=== PATIENT | female | born 1945 | race Caucasian/White ===

== ENCOUNTER → 2018-01-16 | Outpatient (CLI) | payer MEDICARE, OTHER ==
[~2018-01-16] MED LIST: ALBU.083IS IH; ALBU90OI INH; ALEN70 PO; AMLO5; AMLO5 PO; Alavert D-12 A1 EACH PO; Amoxicillin500 MG PO; CELE200; CELE200 PO; CEPH500 PO; CIPR500 PO; DOCSEN PO; DONE5 PO; DULO60; DULOXETINE; FERR325 PO; FLUO20 PO; HYDACE5 PO; IRON150C; NIFE60ER PO; OMEP20ER PO; OMEP40CA12 PO; OMEPRAZOLE; ONDA4ODT MM; OXYB5 PO; OXYC15ER; OXYC15ER PO; OXYCODONE; Omeprazole20 M1 PO; PRIMATINE PO; PROACE100; PROCARDIA; PROLIA60 MG/1 ML SC; PROLIA60 MG/1 ML SQ; PROZAC; Percocet 5-3251 EACH PO; RANI150; RXPROM25 PO; SIMV10 PO; STOOL SOFTENER1 EAC2 PO; Senna S Tablet1 EACH PO; Solaraze100 GM; THEO300ERA PO; THEOPHYLLINE; TIOT18 INH; TRAZ100 PO; TRAZ150T57 PO; TRAZADONE; TYLENOL PM; Ultram50 MG PO; VITAMIN D35000 UNIT PO; Zofran Odt4 MG SL; [UNRECOGNIZED DRUG - OTHER] PO; [UNRECOGNIZED DRUG - OTHER] PO
== END | disposition home or self-care (01) ==
LOC: PLD 09:53 → LAB SHORT 09:53
DX: D48.5 Neoplasm of uncertain behavior of skin (principal)
CPT/HCPCS: 88305

== ENCOUNTER 2018-02-14 09:44 | Day surgery (SDC) | payer MEDICARE, OTHER ==
[~2018-02-14] VITALS: Ht 149.9 cm; Wt 58.5 kg
[~2018-02-14 09:44] MED LIST changes: -DONE5 PO
[2018-02-14] MEDS ORDERED: DONE5 PO (09:55)
== END 2018-02-14 11:00 | disposition home or self-care (01) ==
LOC: ORSCSDS 09:44
PROVIDERS: Anesthesiology
PROC: 3E0R33Z Introduction of Anti-inflammatory into Spinal Canal, Percutaneous Approach (ICD-10-PCS; principal; 2018-02-14 10:30)
DX: M54.12 Radiculopathy, cervical region (principal); M54.2 Cervicalgia; F32.9 Major depressive disorder, single episode, unspecified; E78.00 Pure hypercholesterolemia, unspecified; I10 Essential (primary) hypertension; J44.9 Chronic obstructive pulmonary disease, unspecified; Z87.891 Personal history of nicotine dependence; Z79.899 Other long term (current) drug therapy
CPT/HCPCS: J1040; J2250; J3010

== ENCOUNTER 2018-05-10 10:50 | Day surgery (SDC) | payer MEDICARE, OTHER ==
[~2018-05-10] VITALS: Ht 149.9 cm; Wt 58.1 kg
[~2018-05-10 10:50] MED LIST changes: +DONE5 PO
== END 2018-05-10 12:20 | disposition home or self-care (01) ==
LOC: ORSCSDS 10:50
DX: M54.12 Radiculopathy, cervical region (principal); Z53.9 Procedure and treatment not carried out, unspecified reason
CPT/HCPCS: J7120

== ENCOUNTER 2018-05-31 10:45 | Day surgery (SDC) | payer MEDICARE, OTHER ==
[~2018-05-31] VITALS: Ht 149.9 cm; Wt 58.0 kg
== END 2018-05-31 12:51 | disposition home or self-care (01) ==
LOC: ORSCSDS 10:45
PROVIDERS: Anesthesiology
PROC: 3E0R33Z Introduction of Anti-inflammatory into Spinal Canal, Percutaneous Approach (ICD-10-PCS; principal; 2018-05-31 12:00)
DX: M50.122 Cervical disc disorder at C5-C6 level with radiculopathy (principal); F32.9 Major depressive disorder, single episode, unspecified; I10 Essential (primary) hypertension; J44.9 Chronic obstructive pulmonary disease, unspecified; E78.00 Pure hypercholesterolemia, unspecified; Z87.891 Personal history of nicotine dependence; Z79.899 Other long term (current) drug therapy
CPT/HCPCS: J1040; J2250; J3010; J7040

== ENCOUNTER → 2019-01-29 | Outpatient (CLI) | payer MEDICARE, OTHER | END | disposition home or self-care (01) | LOC: PLD 10:52 → LAB SHORT 10:52 | DX: D48.5 Neoplasm of uncertain behavior of skin (principal) | CPT/HCPCS: 88305 ==

== ENCOUNTER → 2019-08-27 | Outpatient (CLI) | payer MEDICARE, OTHER ==
[~2019-08-27] MED LIST changes: +DULO60 PO; +GABA100 PO; +Hard Nails2500 MCG PO; +LOSA25 PO; +NARCAN4 MG MM
[2019-08-29 14:49] LABS: Adenovirus F 40/41 Not Detected (NOT DETECT); Astrovirus Not Detected (NOT DETECT); Campylobacter Sp Not Detected (NOT DETECT); Cryptosporidium Not Detected (NOT DETECT); Cyclospora Cayetanensis Not Detected (NOT DETECT); E. Coli O157 Not Detected (NOT DETECT); Entamoeba Histolytica Not Detected (NOT DETECT); Enteroaggregative E. coli-EAEC Not Detected (NOT DETECT); Enteropathogenic E. coli-EPEC Not Detected (NOT DETECT); Enterotoxigenic E. coli-ETEC Not Detected (NOT DETECT); Giardia Lamblia Not Detected (NOT DETECT); Norovirus GI/GII Not Detected (NOT DETECT); Plesiomonas Shigelloides Not Detected (NOT DETECT); Rotavirus A Not Detected (NOT DETECT); Salmonella Sp Not Detected (NOT DETECT); Sapovirus Not Detected (NOT DETECT); Shiga Toxin-prod E. coli-STEC Not Detected (NOT DETECT); Shigella/Enteroin E. coli-EIEC Not Detected (NOT DETECT); Vibrio Cholerae Not Detected (NOT DETECT); Vibrio Sp Not Detected (NOT DETECT); Yersinia Enterocolitica Not Detected (NOT DETECT)
== END | disposition home or self-care (01) ==
LOC: LAB EV 08:00
PROVIDERS: Physician Assistant Medical
DX: R15.9 Full incontinence of feces (principal)
CPT/HCPCS: 0097U

== ENCOUNTER 2019-09-04 12:34 | Day surgery (SDC) | payer MEDICARE, OTHER ==
[~2019-09-04] VITALS: Ht 149.9 cm; Wt 51.9 kg
== END 2019-09-04 15:14 | disposition home or self-care (01) ==
LOC: ORSCSDS 12:34
PROVIDERS: Internal Medicine Gastroenterology
PROC: 0DB98ZX Excision of Duodenum, Via Natural or Artificial Opening Endoscopic, Diagnostic (ICD-10-PCS; principal; 2019-09-04 13:45)
PROC: 0DB78ZX Excision of Stomach, Pylorus, Via Natural or Artificial Opening Endoscopic, Diagnostic (ICD-10-PCS; principal; 2019-09-04 13:45)
PROC: 0DBE8ZX Excision of Large Intestine, Via Natural or Artificial Opening Endoscopic, Diagnostic (ICD-10-PCS; principal; 2019-09-04 13:45)
DX: R19.7 Diarrhea, unspecified (principal); R63.4 Abnormal weight loss; K92.1 Melena; R15.9 Full incontinence of feces; K52.831 Collagenous colitis; K44.9 Diaphragmatic hernia without obstruction or gangrene; K57.30 Diverticulosis of large intestine without perforation or abscess without bleeding; K64.8 Other hemorrhoids; K21.9 Gastro-esophageal reflux disease without esophagitis; I10 Essential (primary) hypertension; J44.9 Chronic obstructive pulmonary disease, unspecified; Z87.891 Personal history of nicotine dependence; Z79.899 Other long term (current) drug therapy
CPT/HCPCS: 88305; 88342; J2704; J7120

== ENCOUNTER 2021-10-01 00:54 | Inpatient (IN) | payer MEDICARE ==
[~2021-10-01] VITALS: Ht 149.9 cm; Wt 51.3 kg
[2021-10-01 02:11] LABS: Source, Urine Catheter
[2021-10-01 02:15] LABS: Bilirubin, Urine Neg (Neg); Blood, Urine 4+ (Neg); Glucose Qualitative, Urine Neg (Neg); Ketones, Urine Neg (Neg); Leukocyte Esterase, Urine 1+ (Neg); Nitrite, Urine Pos (Neg); Protein, Urine 2+ (Neg); Urobilinogen, Urine NORM (Normal); pH, Urine 6.5 (5.0-8.0)
[2021-10-01 02:19] LABS: Appearance, Urine Hazy (Clear); Color, Urine Yellow (P-Yellow)
[2021-10-01 02:25] LABS: Bacteria Many /hpf; Squamous Epithelial Cells Not Seen /hpf (Few)
[2021-10-01 02:53] LABS: BASOPHILS ABSOLUTE AUTO 0.05 K/mm3 (0.00-0.23); BASOPHILS PERCENT AUTO 0 % (0-2); EOSINOPHILS ABSOLUTE AUTO 0.01 K/mm3 (0.00-0.68); EOSINOPHILS PERCENT AUTO 0 % (0-6); Hematocrit 28.9 % (33.0-51.0); Hemoglobin 9.4 g/dL (11.5-16.0); IMMATURE GRAN ABSOLUTE AUTO 0.05 K/mm3 (0.00-0.10); IMMATURE GRAN PERCENT AUTO 0 % (0-1); LYMPHOCYTES ABSOLUTE AUTO 1.25 K/mm3 (0.84-5.20); LYMPHOCYTES PERCENT AUTO 10 % (21-46); MONOCYTES ABSOLUTE AUTO 1.79 K/mm3 (0.16-1.47); MONOCYTES PERCENT AUTO 14 % (4-13); Mean Corpuscular HGB 32.6 pg (26.0-34.0); Mean Corpuscular HGB Conc 32.5 g/dL (31.5-36.5); Mean Corpuscular Volume 100 fL (80-100); Mean Platelet Volume 8.2 fL (9.1-12.4); NEUTROPHILS ABSOLUTE AUTO 9.78 K/mm3 (1.96-9.15); NEUTROPHILS PERCENT AUTO 76 % (41-73); Platelet Count 321 K/mm3 (150-400); RDW Coefficient Variation 13.2 % (11.7-14.2); RDW Standard Deviation 48.7 fL (35.1-46.3); Red Blood Cell Count 2.88 M/mm3 (3.80-5.20); White Blood Cell Count 12.93 K/mm3 (4.00-11.30)
[2021-10-01 03:13] LABS: Alanine Aminotransfer (ALT/SGP 10 U/L (12-78); Albumin, Blood 2.4 g/dL (3.4-5.0); Albumin/Globulin Ratio 0.7 (0.8-1.8); Alk Phos 65 U/L (50-136); Anion Gap 7 mmol/L (6-16); Aspartate Aminotrans (AST/SGOT 13 U/L (12-37); Bilirubin, Total 0.5 mg/dL (0.1-1.0); Blood Urea Nitrogen 9 mg/dL (8-24); Bun/Creatinine Ratio 11.8 (12.0-20.0); CO2, Blood 27 mmol/L (21-32); Calcium, Blood 8.5 mg/dL (8.5-10.1); Chloride, Blood 106 mmol/L (98-108); Creatinine, Blood 0.76 mg/dL (0.40-1.00); Globulin, Blood 3.6 g/dL (2.2-4.0); Glomerular Filtration Rate >60 (60-); Glucose, Blood 107 mg/dL (70-99); Magnesium, Blood 1.7 mg/dL (1.6-2.4); Potassium, Blood 2.7 mmol/L (3.5-5.5); Sodium, Blood 140 mmol/L (136-145); Troponin I <0.015 ng/mL (0.000-0.040)
[2021-10-01] MEDS ORDERED: OXYB5 PO (04:02)
[2021-10-01] MEDS ORDERED: SULFASALAZINE PO (04:02)
[2021-10-01] MEDS ORDERED: MEMA5TAB PO (04:03)
[2021-10-01] MEDS ORDERED: TRAZ50 (04:03)
[2021-10-01] MEDS ORDERED: AMLODIPINE BESYL5 MG PO (04:03)
[2021-10-01] MEDS ORDERED: PANTOPRAZOLE SO40 M2 PO (04:04)
[2021-10-01] MEDS ORDERED: DONEPEZIL HCL10 M1 PO (04:04)
[2021-10-01] MEDS ORDERED: FOLI1 PO (04:04)
[2021-10-01 05:13] LABS: Influenza A, PCR NEGATIVE (NEGATIVE); Influenza B, PCR NEGATIVE (NEGATIVE); Resp Syncytial Virus, PCR NEGATIVE (NEGATIVE); SARS-Cov-2 (COVID-19) PCR, MMC NEGATIVE (NEGATIVE)
[2021-10-01 08:14] LABS: BASOPHILS ABSOLUTE AUTO 0.05 K/mm3 (0.00-0.23); BASOPHILS PERCENT AUTO 1 % (0-2); EOSINOPHILS ABSOLUTE AUTO 0.01 K/mm3 (0.00-0.68); EOSINOPHILS PERCENT AUTO 0 % (0-6); Hematocrit 29.3 % (33.0-51.0); Hemoglobin 9.3 g/dL (11.5-16.0); IMMATURE GRAN ABSOLUTE AUTO 0.06 K/mm3 (0.00-0.10); IMMATURE GRAN PERCENT AUTO 1 % (0-1); LYMPHOCYTES ABSOLUTE AUTO 1.21 K/mm3 (0.84-5.20); LYMPHOCYTES PERCENT AUTO 11 % (21-46); MONOCYTES ABSOLUTE AUTO 1.52 K/mm3 (0.16-1.47); MONOCYTES PERCENT AUTO 14 % (4-13); Mean Corpuscular HGB Conc 31.7 g/dL (31.5-36.5); Mean Corpuscular Volume 104 fL (80-100); Mean Platelet Volume 8.6 fL (9.1-12.4); NEUTROPHILS ABSOLUTE AUTO 8.19 K/mm3 (1.96-9.15); NEUTROPHILS PERCENT AUTO 74 % (41-73); Platelet Count 252 K/mm3 (150-400); RDW Coefficient Variation 13.3 % (11.7-14.2); RDW Standard Deviation 50.8 fL (35.1-46.3); Red Blood Cell Count 2.82 M/mm3 (3.80-5.20); White Blood Cell Count 11.04 K/mm3 (4.00-11.30)
[2021-10-01 08:30] LABS: Anion Gap 4 mmol/L (6-16); Blood Urea Nitrogen 9 mg/dL (8-24); Bun/Creatinine Ratio 13.9 (12.0-20.0); CO2, Blood 26 mmol/L (21-32); Calcium, Blood 8.4 mg/dL (8.5-10.1); Chloride, Blood 109 mmol/L (98-108); Creatinine, Blood 0.65 mg/dL (0.40-1.00); Glomerular Filtration Rate >60 (60-); Glucose, Blood 87 mg/dL (70-99); Potassium, Blood 3.2 mmol/L (3.5-5.5); Sodium, Blood 139 mmol/L (136-145)
--- NOTE | 2021-10-01 17:21 | NUR ---
PT ARRIVED AT 1610 AOX3 AND COOPERATIVE OF CARE. PT IS A ONE PERSON ASSIST AND HAS CALL LIGHT WITHIN REACH. PT IS STILL HAVING L SHOULDER PAIN AND IS TREATED PER EMAR. BED ALARM IN PLACE WILL CONTINUE TO MONITOR.
--- NOTE | 2021-10-02 05:36 | NUR ---
PT IS ALERT AND ORIENTED X4, SLEPT MOST OF THE NIGHT WITH MANY TRIPS TO THE CAMODE. PT IS A STAND BY ASSIST AND MADE NO COMPLAINTS THROUGH THE NIGHT. PER TELE, PT NORMAL SINUS 78. STAFF WILL CONTINUE TO MONITOR FOR CHANGES.
--- NOTE | 2021-10-02 14:34 | NUR ---
Initial Assessment with [facility] 1. Who did you speak with? Patient 2. What is the patient's prior level of functions? Independent with some assistance from family member. 3. What is the patient's current living situation? Patient lives on property of close family member. Patient has a safe and stable home with running water, heat electricity, and sewage. 4. Is the patient and/or family able to provide transportation to and from doctor's appointments and apple picking supervisor prescriptions? Family member Chanelle Jason assists patients with transportation needs. 5. Does patient still drive? Patient drives a side by side on property only/can drive very short distances. 6. POA/PCP/NOK: PCP is with [facility]/Chanelle Gomez has POA and is NOK 7. Discharge goals: -SNF: ask family member choice/may need fpc placement in the future due to dementia -DME: cane/pt states she has an old walker and it is not in good repair -Medication Management Self -Preferred Pharmacy: [facility] by mail -Housekeeping need: No -Able to cook for self: yes 8. List barriers to discharge -SNF Placement: -Memory Care: [facility] application started -Transportation needs: Chanelle Gomez transports patient to and from where needed -Financial concerns: Yes-[facility] application process started -Drug/Alcohol treatment: None -Home Health: N/A -Hospice: N/A 9. Discharge Plan: [facility] TBD 10. PCP Follow up appointment: Will coordinate with SNF upon discharge
--- NOTE | 2021-10-02 17:09 | NUR ---
PT AOX4 AND COOPERATIVE OF CARE. PT'S L SHOULDER PAIN CONTINUES AND MORE PRONOUNCED SWELLING, TREAT PER EMAR AND ICE APPLIED. PT CALLS APPROPRIATELY AND CALL LIGHT IS WITHIN REACH. NO DISTRESS NOTED AT THIS TIME WILL CONTINUE TO MONITOR.
[2021-10-02 17:20] LABS: Anion Gap 8 mmol/L (6-16); Blood Urea Nitrogen 12 mg/dL (8-24); Bun/Creatinine Ratio 13.4 (12.0-20.0); CO2, Blood 23 mmol/L (21-32); Calcium, Blood 7.2 mg/dL (8.5-10.1); Chloride, Blood 108 mmol/L (98-108); Glomerular Filtration Rate >60 (60-); Glucose, Blood 98 mg/dL (70-99); Phosphorus, Blood 1.7 mg/dL (2.5-4.9); Potassium, Blood 3.7 mmol/L (3.5-5.5); Sodium, Blood 139 mmol/L (136-145)
--- NOTE | 2021-10-03 06:26 | NUR ---
SHIFT SUMMARY PT IS A 76 Y/O FEMALE, ADMITTED FOR UTI AND WEAKNESS. SHE IS A&O X 3, 1[facility] TO [facility] [place]. PT REPORTED SWELLING TO THE L SHOULDER, AND WAS MEDICATED FOR PAIN TWICE WITH PRN PERCOCET. NO C/O NAUSEA OR SOB. TELE SHOWED NSR IN THE 60S. VITAL SIGNS OTHERWISE STABLE. NO OTHER ACUTE CHANGES IN PT CONDITION NOTED DURING THE NIGHT. WILL CONTINUE TO MONITOR AND TREAT PER EMAR UNTIL HAND OFF TO DAY SHIFT RN.
[2021-10-03 10:45] LABS: Albumin, Blood 1.9 g/dL (3.4-5.0); Anion Gap 6 mmol/L (6-16); Blood Urea Nitrogen 11 mg/dL (8-24); Bun/Creatinine Ratio 13.8 (12.0-20.0); CO2, Blood 25 mmol/L (21-32); Calcium, Blood 7.1 mg/dL (8.5-10.1); Chloride, Blood 109 mmol/L (98-108); Glomerular Filtration Rate >60 (60-); Glucose, Blood 115 mg/dL (70-99); Phosphorus, Blood 1.4 mg/dL (2.5-4.9); Potassium, Blood 4.2 mmol/L (3.5-5.5); Sodium, Blood 140 mmol/L (136-145)
--- NOTE | 2021-10-03 16:37 | NUR ---
SHIFT SUMMARY PT AXO, PLEASANT AND COOPERATIVE WITH CARE. PATIENT WORKED WITH PHYSICAL THERAPY THIS SHIFT AND COMPLAINED OF FEELING DIZZY. VITAL SIGNS AT 1010 REVEALED BP OF 91/49. DR ROSS NOTIFIED AT 1011, WHO MADE CHANGES TO MEDICATIONS. BOLUS ADMINISTERED VIA EMAR. BP AT 1125 97/39. DR ROSS NOTIFIED AGAIN WHO ASKED NURSE TO ASSESS PATIENT FOR FLUID OVERLOAD. THIS NURSE DID HEAR CRACKLES IN BASES. PER DR ROSS WE WERE TO RECHECK BP IN AN HOUR. AT 1325 BP WAS 116/51. NO NEW ORDERS PERTAINING TO THAT AT THAT TIME. PATIENT ALSO COMPLAINED OF GAS AND REQUESTED GAS-X. PER DR ROSS, NEW MED ORDERED AND ADMINISTERED. PT ALSO REQUESTED ICE PACK, IN PLACE AT THIS TIME. BED IN LOW POSITION, CALL LIGHT WITHIN REACH, BED ALARM ON. PT DENIES SOB AND NV.
--- NOTE | 2021-10-04 05:27 | NUR ---
SHIFT SUMMARY PT IS A 76 Y/O FEMALE, ADMITTED FOR UTI AND WEAKNESS. SHE IS A&O X 3, FORGETFUL AT TIMES. 1PA TO THE BSC. VITAL SIGNS STABLE. SHE WAS MEDICATED ONCE FOR L SHOULDER PAIN WITH PRN PERCOCET. NO C/O ACUTE NAUSEA OR SOB. VITAL SIGNS STABLE. NO OTHER ACUTE CHANGES IN PT CONDITION NOTED. WILL CONTINUE TO MONITOR AND TREAT PER EMAR UNTIL HAND OFF TO DAY SHIFT RN.
[2021-10-04 09:56] LABS: Albumin, Blood 1.9 g/dL (3.4-5.0); Anion Gap 6 mmol/L (6-16); Blood Urea Nitrogen 10 mg/dL (8-24); Bun/Creatinine Ratio 12.4 (12.0-20.0); CO2, Blood 24 mmol/L (21-32); Calcium, Blood 7.1 mg/dL (8.5-10.1); Chloride, Blood 112 mmol/L (98-108); Glomerular Filtration Rate >60 (60-); Glucose, Blood 126 mg/dL (70-99); Phosphorus, Blood 1.4 mg/dL (2.5-4.9); Potassium, Blood 3.9 mmol/L (3.5-5.5); Sodium, Blood 142 mmol/L (136-145)
--- NOTE | 2021-10-04 16:47 | NUR ---
SHIFT SUMMARY PATIENT MEDICATED FOR PAIN X2. PAIN IN LEFT SHOULDER. PATIENT DENIES NAUSEA AND SHORTNESS OF BREATH. PATIENT IS A 1 PERSON ASSIST TO THE BSC. PATIENT IS FORGETFUL AT TIMES. PATIENT IS EATING AND DRINKING WELL. PATIENT HAD A VISITOR IN THE AFTERNOON THAT BROUGHT HER TREATS, PATIENT WAS VERY EXCITED ABOUT THAT. PATIENT IS PLEASANT AND COOPERATIVE WITH CARE.
--- NOTE | 2021-10-05 04:20 | NUR ---
SUMMARY: PT A/OX2-3, IS MILDLY FORGETFULL AT TIMES BUT CALLED APPROPRIATELY TO SPECIFY NEEDS. SHE T/F'D SELF TO BSC W/O DIFFICULTY BUT IS SBA FOR DISTANCE. PT MEDICATED W/PERCOCET FOR C/O L.SHOULDER PAIN AND DENIED ALL OTHER COMPLAINTS. PT REMAINS NSR AT 60'S BPM. NO ACUTE CHANGES, VSS/AFEBRILE. WCTM AND REPORT TO DAY RN.
[2021-10-05 04:47] LABS: BASOPHILS ABSOLUTE AUTO 0.05 K/mm3 (0.00-0.23); BASOPHILS PERCENT AUTO 1 % (0-2); EOSINOPHILS ABSOLUTE AUTO 0.73 K/mm3 (0.00-0.68); EOSINOPHILS PERCENT AUTO 13 % (0-6); Hematocrit 25.3 % (33.0-51.0); IMMATURE GRAN ABSOLUTE AUTO 0.01 K/mm3 (0.00-0.10); IMMATURE GRAN PERCENT AUTO 0 % (0-1); LYMPHOCYTES ABSOLUTE AUTO 1.98 K/mm3 (0.84-5.20); LYMPHOCYTES PERCENT AUTO 34 % (21-46); MONOCYTES ABSOLUTE AUTO 0.66 K/mm3 (0.16-1.47); MONOCYTES PERCENT AUTO 11 % (4-13); Mean Corpuscular HGB 32.7 pg (26.0-34.0); Mean Corpuscular HGB Conc 31.6 g/dL (31.5-36.5); Mean Corpuscular Volume 103 fL (80-100); Mean Platelet Volume 8.3 fL (9.1-12.4); NEUTROPHILS ABSOLUTE AUTO 2.35 K/mm3 (1.96-9.15); NEUTROPHILS PERCENT AUTO 41 % (41-73); Platelet Count 373 K/mm3 (150-400); RDW Coefficient Variation 13.8 % (11.7-14.2); RDW Standard Deviation 53.1 fL (35.1-46.3); Red Blood Cell Count 2.45 M/mm3 (3.80-5.20); White Blood Cell Count 5.78 K/mm3 (4.00-11.30)
[2021-10-05 09:54] LABS: Chloride, Blood 112 mmol/L (98-108); Potassium, Blood 4.2 mmol/L (3.5-5.5); Sodium, Blood 142 mmol/L (136-145)
[2021-10-05 10:14] LABS: Albumin, Blood 2.1 g/dL (3.4-5.0); Anion Gap 8 mmol/L (6-16); Blood Urea Nitrogen 11 mg/dL (8-24); Bun/Creatinine Ratio 15.8 (12.0-20.0); CO2, Blood 22 mmol/L (21-32); Calcium, Blood 7.8 mg/dL (8.5-10.1); Glomerular Filtration Rate >60 (60-); Glucose, Blood 112 mg/dL (70-99); Phosphorus, Blood 1.9 mg/dL (2.5-4.9)
--- NOTE | 2021-10-05 18:33 | NUR ---
SHIFT SUMMARY PATIENT RESTING IN BED. PATIENT COMPLAINING OF LEFT SHOULDER PAIN. MEDICATED PER JAN. ALERT AND ORIENTED OCCASIONALLY FORGETFUL. ABLE TO GET UP TO BEDSIDE COMMODE. 1 PERSON ASSIST FOR FURTHER DISTANCES. PATIENT ON TELE. VS STABLE. WILL CONTINUE TO MONITOR.
[2021-10-06 04:49] LABS: BASOPHILS ABSOLUTE AUTO 0.05 K/mm3 (0.00-0.23); BASOPHILS PERCENT AUTO 1 % (0-2); EOSINOPHILS ABSOLUTE AUTO 0.61 K/mm3 (0.00-0.68); EOSINOPHILS PERCENT AUTO 11 % (0-6); Hematocrit 25.2 % (33.0-51.0); Hemoglobin 7.8 g/dL (11.5-16.0); IMMATURE GRAN ABSOLUTE AUTO 0.02 K/mm3 (0.00-0.10); IMMATURE GRAN PERCENT AUTO 0 % (0-1); LYMPHOCYTES ABSOLUTE AUTO 1.97 K/mm3 (0.84-5.20); LYMPHOCYTES PERCENT AUTO 34 % (21-46); MONOCYTES PERCENT AUTO 10 % (4-13); Mean Corpuscular HGB 32.2 pg (26.0-34.0); Mean Corpuscular Volume 104 fL (80-100); Mean Platelet Volume 8.4 fL (9.1-12.4); NEUTROPHILS ABSOLUTE AUTO 2.53 K/mm3 (1.96-9.15); NEUTROPHILS PERCENT AUTO 44 % (41-73); Platelet Count 373 K/mm3 (150-400); RDW Coefficient Variation 13.5 % (11.7-14.2); RDW Standard Deviation 52.1 fL (35.1-46.3); RETICULOCYTE ABSOLUTE 0.0288 M/mm3 (0.0200-0.1100); RETICULOCYTE COUNT PERCENT 1.19 % (0.50-2.50); Red Blood Cell Count 2.42 M/mm3 (3.80-5.20); White Blood Cell Count 5.78 K/mm3 (4.00-11.30)
--- NOTE | 2021-10-06 05:16 | NUR ---
SHIFT SUMMARY: PT IS ALERT AND ORIENTED. PT IS CALM AND COOPERATIVE WITH CARE. PT CALLS APPROPRIATELY. PT IS INDEPENDENT TO THE BSC, STANDBY ASSIST FOR FURTHER DISTANCE. PT REPORTS SHOULDER PAIN ON ONE OCCASION, GAVE PRN OXYCODONE. PT DENIES NAUSEA, VOMITING, AND SOB. PT SLEPT MUCH OF THE NIGHT WHEN NOT DISTURBED. NO ACUTE CHANGES OR COMPLICATONS. WILL CONTINUE TO MONITOR.
[2021-10-06 06:18] LABS: Alanine Aminotransfer (ALT/SGP 10 U/L (12-78); Albumin, Blood 1.7 g/dL (3.4-5.0); Albumin/Globulin Ratio 0.6 (0.8-1.8); Alk Phos 62 U/L (50-136); Anion Gap 4 mmol/L (6-16); Aspartate Aminotrans (AST/SGOT 14 U/L (12-37); Bilirubin, Total 0.1 mg/dL (0.1-1.0); Blood Urea Nitrogen 12 mg/dL (8-24); Bun/Creatinine Ratio 13.7 (12.0-20.0); CO2, Blood 25 mmol/L (21-32); Calcium, Blood 7.8 mg/dL (8.5-10.1); Chloride, Blood 116 mmol/L (98-108); Creatinine, Blood 0.88 mg/dL (0.40-1.00); Ferritin, Serum 95 ng/mL (8-252); Globulin, Blood 2.8 g/dL (2.2-4.0); Glomerular Filtration Rate >60 (60-); Glucose, Blood 91 mg/dL (70-99); Iron Serum 35 ug/dL (50-170); Percent Saturation 26.9 % (15.0-50.0); Potassium, Blood 4.8 mmol/L (3.5-5.5); Sodium, Blood 145 mmol/L (136-145); Total Iron Binding Capacity 130 ug/dL (250-450); Total Protein, Blood 4.5 g/dL (6.4-8.2)
[2021-10-06 10:11] LABS: Stool Occult Bld Immuno 1 Negative (NEGATIVE)
[2021-10-06 10:20] LABS: Albumin, Blood 1.9 g/dL (3.4-5.0); Anion Gap 4 mmol/L (6-16); Blood Urea Nitrogen 11 mg/dL (8-24); CO2, Blood 26 mmol/L (21-32); Calcium, Blood 8.1 mg/dL (8.5-10.1); Chloride, Blood 113 mmol/L (98-108); Creatinine, Blood 0.79 mg/dL (0.40-1.00); Glomerular Filtration Rate >60 (60-); Glucose, Blood 145 mg/dL (70-99); Phosphorus, Blood 2.7 mg/dL (2.5-4.9); Potassium, Blood 5.4 mmol/L (3.5-5.5); Sodium, Blood 143 mmol/L (136-145)
[2021-10-06] MEDS ORDERED: ACET500 PO (10:57)
[2021-10-06] MEDS ORDERED: BISA10S PR (10:57)
[2021-10-06] MEDS ORDERED: LACT PO (10:58)
[2021-10-06] MEDS ORDERED: FERSU300 PO (10:58)
[2021-10-06] MEDS ORDERED: BACTRIM DS TAB1 EAC6 PO (10:58)
[2021-10-06 12:23] LABS: Influenza A, PCR NEGATIVE (NEGATIVE); Influenza B, PCR NEGATIVE (NEGATIVE); Resp Syncytial Virus, PCR NEGATIVE (NEGATIVE); SARS-Cov-2 (COVID-19) PCR, MMC NEGATIVE (NEGATIVE)
--- NOTE | 2021-10-06 13:22 | NUR ---
REPORT CALLED TO RN AT [facility] AT 1322 ON 10/06/21
--- NOTE | 2021-10-06 15:30 | NUR ---
DISCHARGED AT 1530
--- NOTE | 2021-10-07 09:04 | NUR ---
Per Dr. Shore discharge appropriate for 10/06/21. Spoke with patient and family member Chanelle whom is aware of discharge and does not oppose. Patient discharged and transported to [facility]. [facility] arranged through [facility] for 1500. Patient understands length of stay and SNF is determined on health and progress. [facility] will coordinate follow up appointment with Essie PCP (within seven days of discharge). Patient and family member Chanelle knows to contact her PCP if she has any questions regarding medication management or any medical or social service needs. Discussed with Chanelle the process for applying for longwall headgate operator care; contact information given over the phone. No barriers to discharge.
[2021-10-08 12:09] LABS: ALBUMIN 2.1 g/dL (2.9-4.4); ALPHA-1-GLOBULIN 0.4 g/dL (0.0-0.4); ALPHA-2-GLOBULIN 0.7 g/dL (0.4-1.0); BETA GLOBULIN 0.7 g/dL (0.7-1.3); GAMMA GLOBULIN 0.5 g/dL (0.4-1.8); GLOBULIN, TOTAL 2.2 g/dL (2.2-3.9); M-SPIKE Not Observed g/dL (Not Observed); PROTEIN, TOTAL, SERUM 4.3 g/dL (6.0-8.5)
== END 2021-10-06 15:30 | DRG 690 ==
LOC: ER 00:54 → ERHOLD 03:30 → MEDS 15:59
PROVIDERS: Family Medicine; Hospitalist; Student in an Organized Health Care Education/Training Program; ADMIT Internal Medicine
DX: N39.0 Urinary tract infection, site not specified (principal); E46 Unspecified protein-calorie malnutrition; B96.20 Unspecified Escherichia coli [E. coli] as the cause of diseases classified elsewhere; G89.29 Other chronic pain; E88.09 Other disorders of plasma-protein metabolism, not elsewhere classified; F03.90 Unspecified dementia, unspecified severity, without behavioral disturbance, psychotic disturbance, mood disturbance, and anxiety; E78.5 Hyperlipidemia, unspecified; Z23 Encounter for immunization; Z20.822 Contact with and (suspected) exposure to COVID-19; E87.6 Hypokalemia; Z66 Do not resuscitate; I10 Essential (primary) hypertension; M13.812 Other specified arthritis, left shoulder; Z68.26 Body mass index [BMI] 26.0-26.9, adult; M75.102 Unspecified rotator cuff tear or rupture of left shoulder, not specified as traumatic; E78.00 Pure hypercholesterolemia, unspecified; Z90.49 Acquired absence of other specified parts of digestive tract; Z98.51 Tubal ligation status; Z98.890 Other specified postprocedural states; Z98.49 Cataract extraction status, unspecified eye; Z90.2 Acquired absence of lung [part of]; Z85.118 Personal history of other malignant neoplasm of bronchus and lung; Z87.891 Personal history of nicotine dependence; Z79.899 Other long term (current) drug therapy; Z88.8 Allergy status to other drugs, medicaments and biological substances; E83.39 Other disorders of phosphorus metabolism
CPT/HCPCS: 0241U; 36415; 70450; 71045; 73030; 80048; 80053; 80069; 81001; 82274; 82607; 82728; 82746; 83540; 83550; 83735; 84484; 85025; 85045; 87077; 87086; 87186; 93005; 93010; 94760; 96365; 96366; 96367; 97110; 97116; 97129; 97162; 97166; 97530; 97535; 99285-25; A9270; J0696; J1650; J3480; J7040

== ENCOUNTER → 2021-10-14 | Outpatient (CLI) | payer MEDICARE ==
[~2021-10-14] MED LIST changes: +ACET500 PO; +AMLODIPINE BESYL5 MG PO; +BACTRIM DS TAB1 EAC6 PO; +BISA10S PR; +DONEPEZIL HCL10 M1 PO; +FERSU300 PO; +FOLI1 PO; +LACT PO; +MEMA5TAB PO; +PANTOPRAZOLE SO40 M2 PO; +SULFASALAZINE PO; +TRAZ50
[2021-10-14 17:42] LABS: BASOPHILS ABSOLUTE AUTO 0.07 K/mm3 (0.00-0.23); BASOPHILS PERCENT AUTO 1 % (0-2); EOSINOPHILS ABSOLUTE AUTO 0.44 K/mm3 (0.00-0.68); EOSINOPHILS PERCENT AUTO 6 % (0-6); Hematocrit 29.3 % (33.0-51.0); Hemoglobin 9.4 g/dL (11.5-16.0); IMMATURE GRAN ABSOLUTE AUTO 0.09 K/mm3 (0.00-0.10); IMMATURE GRAN PERCENT AUTO 1 % (0-1); LYMPHOCYTES ABSOLUTE AUTO 2.21 K/mm3 (0.84-5.20); LYMPHOCYTES PERCENT AUTO 29 % (21-46); MONOCYTES PERCENT AUTO 9 % (4-13); Mean Corpuscular HGB Conc 32.1 g/dL (31.5-36.5); Mean Corpuscular Volume 103 fL (80-100); NEUTROPHILS ABSOLUTE AUTO 4.05 K/mm3 (1.96-9.15); NEUTROPHILS PERCENT AUTO 54 % (41-73); Platelet Count 447 K/mm3 (150-400); RDW Coefficient Variation 14.8 % (11.7-14.2); RDW Standard Deviation 55.3 fL (35.1-46.3); Red Blood Cell Count 2.85 M/mm3 (3.80-5.20); White Blood Cell Count 7.56 K/mm3 (4.00-11.30)
== END | disposition home or self-care (01) ==
LOC: LAB 17:35 → LAB SHORT 17:35
PROVIDERS: Physician Assistant
DX: D50.0 Iron deficiency anemia secondary to blood loss (chronic) (principal)
CPT/HCPCS: 85025

== ENCOUNTER → 2021-12-14 | Outpatient (CLI) | payer MEDICARE | LOC: LAB SHORT 13:58 → LAB 13:58 | DX: N39.0 Urinary tract infection, site not specified (principal) | CPT/HCPCS: 87077; 87086; 87147; 87186 ==

== ENCOUNTER 2022-04-28 23:41 | Inpatient (IN) | payer MEDICARE ==
[~2022-04-28] VITALS: Ht 149.9 cm; Wt 48.5 kg
[~2022-04-28 23:41] MED LIST changes: -MEMA5TAB PO; +NAMENDA XR28 MG PO
[2022-04-29 00:02] LABS: BASOPHILS ABSOLUTE AUTO 0.04 K/mm3 (0.00-0.23); BASOPHILS PERCENT AUTO 1 % (0-2); EOSINOPHILS PERCENT AUTO 4 % (0-6); Hematocrit 29.6 % (33.0-51.0); Hemoglobin 9.8 g/dL (11.5-16.0); IMMATURE GRAN PERCENT AUTO 1 % (0-1); LYMPHOCYTES ABSOLUTE AUTO 1.67 K/mm3 (0.84-5.20); LYMPHOCYTES PERCENT AUTO 21 % (21-46); MONOCYTES ABSOLUTE AUTO 0.95 K/mm3 (0.16-1.47); MONOCYTES PERCENT AUTO 12 % (4-13); Mean Corpuscular HGB 31.1 pg (26.0-34.0); Mean Corpuscular HGB Conc 33.1 g/dL (31.5-36.5); Mean Corpuscular Volume 94 fL (80-100); Mean Platelet Volume 8.6 fL (9.1-12.4); NEUTROPHILS ABSOLUTE AUTO 4.86 K/mm3 (1.96-9.15); NEUTROPHILS PERCENT AUTO 61 % (41-73); Platelet Count 262 K/mm3 (150-400); RDW Coefficient Variation 13.3 % (11.7-14.2); RDW Standard Deviation 45.5 fL (35.1-46.3); Red Blood Cell Count 3.15 M/mm3 (3.80-5.20); White Blood Cell Count 7.92 K/mm3 (4.00-11.30)
[2022-04-29 00:22] LABS: Albumin, Blood 2.9 g/dL (3.4-5.0); Albumin/Globulin Ratio 0.9 (0.8-1.8); Bilirubin, Total 0.3 mg/dL (0.1-1.0); Calcium, Blood 9.2 mg/dL (8.5-10.1); Creatinine, Blood 1.06 mg/dL (0.40-1.00); Globulin, Blood 3.2 g/dL (2.2-4.0); Potassium, Blood 2.7 mmol/L (3.5-5.5); Total Protein, Blood 6.1 g/dL (6.4-8.2)
[2022-04-29 00:33] LABS: Source, Urine Clean Catch
[2022-04-29 00:36] LABS: Bilirubin, Urine Neg (Neg); Blood, Urine 2+ (Neg); Glucose Qualitative, Urine Neg (Neg); Ketones, Urine Neg (Neg); Leukocyte Esterase, Urine 2+ (Neg); Nitrite, Urine Neg (Neg); Protein, Urine Neg (Neg); Specific Gravity, Urine 1.015 (1.003-1.022); Urobilinogen, Urine NORM (Normal)
[2022-04-29 00:39] LABS: Appearance, Urine Hazy (Clear); Color, Urine Yellow (P-Yellow)
[2022-04-29 00:43] LABS: Bacteria Many /hpf; Squamous Epithelial Cells Few /hpf (Few); White Blood Cells, Urine 50-100 /hpf (0-5)
[2022-04-29] MEDS ORDERED: DULO30 PO (02:17)
--- NOTE | 2022-04-29 04:39 | NUR ---
PT arrived on floor at 0305 with ER nurse. pt transfered to bed. pt is alert and oriented but forgetful, states she remembers the event and her tailbone is hurting. pt given tylenol and heat pack. pt is able to ambulate with minimal assistance using 4WW. pt is normally independent at home. potassium infusion continued on trasnfer with NS.
[2022-04-29 05:14] LABS: BASOPHILS ABSOLUTE AUTO 0.05 K/mm3 (0.00-0.23); BASOPHILS PERCENT AUTO 1 % (0-2); EOSINOPHILS ABSOLUTE AUTO 0.29 K/mm3 (0.00-0.68); EOSINOPHILS PERCENT AUTO 4 % (0-6); Hematocrit 31.3 % (33.0-51.0); Hemoglobin 10.1 g/dL (11.5-16.0); IMMATURE GRAN ABSOLUTE AUTO 0.07 K/mm3 (0.00-0.10); IMMATURE GRAN PERCENT AUTO 1 % (0-1); LYMPHOCYTES ABSOLUTE AUTO 1.67 K/mm3 (0.84-5.20); LYMPHOCYTES PERCENT AUTO 22 % (21-46); MONOCYTES ABSOLUTE AUTO 0.86 K/mm3 (0.16-1.47); MONOCYTES PERCENT AUTO 11 % (4-13); Mean Corpuscular HGB 30.8 pg (26.0-34.0); Mean Corpuscular HGB Conc 32.3 g/dL (31.5-36.5); Mean Corpuscular Volume 95 fL (80-100); Mean Platelet Volume 9.1 fL (9.1-12.4); NEUTROPHILS ABSOLUTE AUTO 4.58 K/mm3 (1.96-9.15); NEUTROPHILS PERCENT AUTO 61 % (41-73); Platelet Count 269 K/mm3 (150-400); RDW Coefficient Variation 13.2 % (11.7-14.2); RDW Standard Deviation 46.7 fL (35.1-46.3); Red Blood Cell Count 3.28 M/mm3 (3.80-5.20); White Blood Cell Count 7.52 K/mm3 (4.00-11.30)
[2022-04-29 05:52] LABS: Albumin, Blood 2.7 g/dL (3.4-5.0); Albumin/Globulin Ratio 0.9 (0.8-1.8); Bilirubin, Total 0.3 mg/dL (0.1-1.0); Bun/Creatinine Ratio 13.7 (12.0-20.0); Creatinine, Blood 1.02 mg/dL (0.40-1.00); Total Protein, Blood 5.7 g/dL (6.4-8.2)
--- NOTE | 2022-04-29 12:37 | NUR ---
Spoke with Primary RN Araceli prior to Pt visit and discussed case. Pt would benefit from discussion regarding code status. Pt sitting in chair upon arrival. Pt is A&OX3/4 and with minimal engagement in conversation. Engaged in therapeutic discussion regarding code status. Educated on life sustaining treatments including risk factors and implications of CPR. Pt appears to struggle with processing information but does report wishes are for CPR and Intubation. Pt is pleasant and remains minimally engaged. Ended visit to allow Pt to rest. Palliative Care will remain available.
--- NOTE | 2022-04-29 16:41 | NUR ---
PT AOX4 AND COOPERATIVE OF CARE NO DISTRESS NOTED AT THIS TIME. PT VERY WEAK AND IS A ONE PERSON TRANSFER WITH WALKER AND GAITBELT. PT CAN CALL APPROPRAITELY. PT IS UP FOR MEALS AND CAN CALL APPROPRIATELY. WILL CONTINUE TO MONITOR.
--- NOTE | 2022-04-30 05:18 | NUR ---
FAMILY PRESENT AT SHIFT CHANGE. PT HAS GOOD SUPPORT FROM FRIENDS AND FAMILY FOR DISCHARGE. PT ABLE TO AMBULATE TO THE BATHROOM USING 4WW. FLUIDS INFUSED DURING THE NIGHT. ONE DOSE OF OXYCODONE GIVEN FOR PAIN IN COCYX.
[2022-04-30 05:58] LABS: BASOPHILS ABSOLUTE AUTO 0.03 K/mm3 (0.00-0.23); BASOPHILS PERCENT AUTO 0 % (0-2); EOSINOPHILS ABSOLUTE AUTO 0.27 K/mm3 (0.00-0.68); EOSINOPHILS PERCENT AUTO 4 % (0-6); Hematocrit 27.7 % (33.0-51.0); Hemoglobin 8.9 g/dL (11.5-16.0); IMMATURE GRAN ABSOLUTE AUTO 0.04 K/mm3 (0.00-0.10); IMMATURE GRAN PERCENT AUTO 1 % (0-1); LYMPHOCYTES PERCENT AUTO 23 % (21-46); MONOCYTES ABSOLUTE AUTO 0.74 K/mm3 (0.16-1.47); MONOCYTES PERCENT AUTO 10 % (4-13); Mean Corpuscular HGB 31.1 pg (26.0-34.0); Mean Corpuscular HGB Conc 32.1 g/dL (31.5-36.5); Mean Corpuscular Volume 97 fL (80-100); Mean Platelet Volume 9.1 fL (9.1-12.4); NEUTROPHILS ABSOLUTE AUTO 4.48 K/mm3 (1.96-9.15); NEUTROPHILS PERCENT AUTO 62 % (41-73); Platelet Count 246 K/mm3 (150-400); RDW Coefficient Variation 13.6 % (11.7-14.2); RDW Standard Deviation 48.3 fL (35.1-46.3); Red Blood Cell Count 2.86 M/mm3 (3.80-5.20); White Blood Cell Count 7.26 K/mm3 (4.00-11.30)
[2022-04-30 06:35] LABS: Albumin, Blood 2.3 g/dL (3.4-5.0); Albumin/Globulin Ratio 0.8 (0.8-1.8); Bilirubin, Total 0.3 mg/dL (0.1-1.0); Bun/Creatinine Ratio 13.6 (12.0-20.0); Calcium, Blood 7.7 mg/dL (8.5-10.1); Creatinine, Blood 0.88 mg/dL (0.40-1.00); Globulin, Blood 2.9 g/dL (2.2-4.0); Magnesium, Blood 1.6 mg/dL (1.6-2.4); Potassium, Blood 4.2 mmol/L (3.5-5.5); Total Protein, Blood 5.2 g/dL (6.4-8.2)
--- NOTE | 2022-04-30 17:08 | NUR ---
SHIFT SUMMARY 77 Y FEMALE ADMITED WITH UTI. PT HAS BEEN A&O, PLEASANT AND COOPERATIVE WITH CARE. PT HAS BEEN VERY PAINFULL ESPECIALLY WITH REPOSITIONING. MEDICATED PT WITH APAP AND ROXICODONE WITH GOOD OBSERVED RELIEF BUT PT REPORTS IT DOESN'T MANAGE HER PAIN WELL ENOUGH. DR. ROSS NOTIFIED AND WAS EVALUATING MEDS AND POSSIBLY ADDING IBUPROFIN TO ORDERS. PT WAS UP TO CHAIR A FEW TIMES TODAY AND TOLERATED WELL AND UP WITH PT/OT TODAY AND TOLERATED WELL TODAY. POSSIBLE D/C HOME TOMORROW DISCUSSED WITH PT, FAMILY AND MD. NO OTHER CHANGES TO REPORT THIS SHIFT.
--- NOTE | 2022-05-01 05:00 | NUR ---
PT CONTINUES TO NEED MORE SUPPORT WITH TRANSFERS. AFTER WALKING TO THE BATHROOM PATIENT NEEDED TWO STAFF MEMBERS TO LIFT HER OFF THE TOILET. PT HAS HAD LOOSE LIQUID STOOL ALL NIGHT AND IS UNAWARE SHE IS GOING. PT HAS HAD ONE DOSE OF OXYCODONE BUT OTHERWISE IS DOING WELL WITH HEAT THERAPY ON COCCYX. PT IS ABLE TO TURN IN BED INDEPENDENTLY.
[2022-05-01 08:22] LABS: BASOPHILS ABSOLUTE AUTO 0.04 K/mm3 (0.00-0.23); BASOPHILS PERCENT AUTO 0 % (0-2); EOSINOPHILS PERCENT AUTO 3 % (0-6); Hematocrit 30.1 % (33.0-51.0); Hemoglobin 9.7 g/dL (11.5-16.0); IMMATURE GRAN ABSOLUTE AUTO 0.04 K/mm3 (0.00-0.10); IMMATURE GRAN PERCENT AUTO 0 % (0-1); LYMPHOCYTES ABSOLUTE AUTO 1.61 K/mm3 (0.84-5.20); LYMPHOCYTES PERCENT AUTO 16 % (21-46); MONOCYTES PERCENT AUTO 6 % (4-13); Mean Corpuscular HGB 31.5 pg (26.0-34.0); Mean Corpuscular HGB Conc 32.2 g/dL (31.5-36.5); Mean Corpuscular Volume 98 fL (80-100); Mean Platelet Volume 8.4 fL (9.1-12.4); NEUTROPHILS ABSOLUTE AUTO 7.39 K/mm3 (1.96-9.15); NEUTROPHILS PERCENT AUTO 74 % (41-73); Platelet Count 257 K/mm3 (150-400); RDW Coefficient Variation 13.9 % (11.7-14.2); RDW Standard Deviation 50.3 fL (35.1-46.3); Red Blood Cell Count 3.08 M/mm3 (3.80-5.20); White Blood Cell Count 9.98 K/mm3 (4.00-11.30)
[2022-05-01 08:42] LABS: Albumin, Blood 2.6 g/dL (3.4-5.0); Anion Gap 7 mmol/L (6-16); Blood Urea Nitrogen 14 mg/dL (8-24); CO2, Blood 21 mmol/L (21-32); Chloride, Blood 108 mmol/L (98-108); Creatinine, Blood 0.88 mg/dL (0.40-1.00); Glomerular Filtration Rate 68 (60-); Glucose, Blood 89 mg/dL (70-99); Magnesium, Blood 1.8 mg/dL (1.6-2.4); Phosphorus, Blood 2.1 mg/dL (2.5-4.9); Sodium, Blood 136 mmol/L (136-145)
--- NOTE | 2022-05-01 19:36 | NUR ---
SHIFT SUMMARY PATIENT A&OX3 WITH DEMENTIA. 1-2PA TO BSC OR CHAIR DEPENDING ON FATIGUE. WORKED WITH PT, TOLERATED WELL. C/O BACK PAIN, MEDICATED PER JAN. PENDING SNF AUTH. NO SIGNIFICANT EVENTS. REPORT GIVEN TO ONCOMING RN.
--- NOTE | 2022-05-02 03:08 | NUR ---
A P SUPERVISOR SUMMARY HAS BEEN RESTING INTERMITTENTLY IN BED WITH FEW INTERRUPTIONS. TOLERATED MEDS WELL. ANTIBIOTIC GIVEN. CALLED APPROPRIATELY FOR ASSIST WITH BEDPAN. VOIDING SUFFICIENTLY - CLEAR WILLY. CURRENTLY RESTING QUIETLY. CALL LIGHT IN REACH
--- NOTE | 2022-05-02 07:36 | NUR ---
ASSUMED CARE AT 0700. PATIENT AWAKE IN HER BED. REPORT RECEIVED. CHART REVIEWED. PATIENT IS AWAITING [facility] AUTH FOR SNF DC THAT WAS REQUESTED 04/30. WILL CONT TO MONITOR.
--- NOTE | 2022-05-02 18:37 | NUR ---
SHIFT SUMMARY NO ACUTE CHANGES THIS SHIFT. PATIENT IS AWAITING SNF DISCHARGE. SHE IS ALERT AND ORIENTED. C/O OF PAIN, MEDICATED PER EMAR. SHE DID GET OOB X1 TO THE CHAIR AND UNSE THE BEDSIDE COMMODE. SHE IS A 1 PERSON TRANSFER WITH A WALKER AND GAIT BELT. IV REPLACED, TOLERATED WELL. [facility] AND UNTILL REPORT GIVEN TO FOUNDER AND PRESIDENT.
--- NOTE | 2022-05-03 04:29 | NUR ---
GRAPHIC USER INTERFACE DESIGNER SUMMARY VERBAL RESPONSE APPROPRIATE TO QUESTIONS/ASSESSMENTS. MED TELE SINUS. FEW COMPLAINTS VOICED, CONTINENT - CALLS FOR AND USES "BEDPAN" APPROPRIATELY. VOIDED QS. CLEAR AND WILLY. HAS BEEN RESTING QUIETLY WITH FEW INTERRUPTIONS THROUGHOUT SHIFT. CALL LIGHT IN REACH
--- NOTE | 2022-05-03 16:11 | NUR ---
SHIFT SUMMARY PT RESTING QUIETLY WATCHING TV, DURING SHIFT REPORT. MEDICATED FOR PAIN PRIOR TO START OF SHIFT. PT UP TO BSC BEFORE BREAKFAST AND THEN TO CHAIR. HEATING PAD AND TYLENOL GIVEN FOR C/O PAIN WHILE IN CHAIR. DR ROSS IN TO SEE PT AND DISCUSS PLAN OF CARE. DAUGHTER LATER CALLED TO CK ON PT AND VISITORS TO WELL. PT ABLE TO WORK WITH PT/OT TODAY. PER SALES REVIEW CLERK, PT WAITING FOR TX TO SNF WHEN BED AVAILABLE. STAT COVID DONE, BUT INSURANCE NOT APPROVED JUST YET. POSSIBLE D/C TOMORROW. PT HAS BEEN CONTINENT OF BOWEL AND BLADDER. CALLS FOR NEEDS APPROP. UP TO CHAIR FOR MEALS. CALL LT IN REACH.
[2022-05-03 16:30] LABS: Influenza A, PCR NEGATIVE (NEGATIVE); Influenza B, PCR NEGATIVE (NEGATIVE); Resp Syncytial Virus, PCR NEGATIVE (NEGATIVE); SARS-Cov-2 (COVID-19) PCR, MMC NEGATIVE (NEGATIVE)
--- NOTE | 2022-05-04 04:12 | NUR ---
TIMBER HARVESTER OPERATOR SUMMARY HAS BEEN RESTING QUIETLY WITH A FEW INTERRUPTIONS SINCE HS. USES CALL LIGHT APPROPRIATELY FOR BEDPAN AND PAIN MEDS. OF THIS WRITING, PT HAS HAD PAIN MEDS X 2 FOR BACK PAIN. VOIDING QS. CALL LIGHT IN REACH. BP SLIGHTLY LOW, LEGS ELEVATED, WILL RETAKE BP LATER. ASYMPTOMATIC
--- NOTE | 2022-05-04 14:13 | NUR ---
SHIFT SUMMARY PT RESTING QUIETLY AT START OF SHIFT. WOKE EASILY FOR AM CARE. PT ASSISTED UP TO BSC AND THEN TO CHAIR AT BS FOR BREAKFAST. PT REMAINED IN CHAIR FOR A WHILE AFTER BREAKFAST. LATER REQUESTED TO GO BACK TO BED FOR COMFORT D/T BACK PAIN. PT MEDICATED PRN FOR C/O PAIN. PT UP WALKING IN SOSA WITH P/T THIS AFTERNOON. PLEASANT AND C/O WITH CARE. PT CONTINUES TO WAIT FOR INSURANCE APPROVAL FOR SNF. WILL CONTINUE TO MONITOR. CALL LT IN REACH.
--- NOTE | 2022-05-05 03:47 | NUR ---
TEACHER ASSOCIATE SUMMARY HAS BEEN RESTING QUIETLY WITH A FEW INTERRUPTIONS WITH PAIN MED REQUESTS (SEVERE BACK PAIN) AND TO GET UP TO THE BEDSIDE COMMODE. ONE PERSON ASSIST. REMAINS CONTINENT. HOB ELEVATED FOR COMFORT. ANTIBIOTIC ADMIN. URINE CLEAR, WILLY. CALL LIGHT IN REACH
[2022-05-05] MEDS ORDERED: OXYC5 PO (10:49)
[2022-05-05 11:29] LABS: Influenza A, PCR NEGATIVE (NEGATIVE); Influenza B, PCR NEGATIVE (NEGATIVE); Resp Syncytial Virus, PCR NEGATIVE (NEGATIVE); SARS-Cov-2 (COVID-19) PCR, MMC NEGATIVE (NEGATIVE)
--- NOTE | 2022-05-05 15:52 | NUR ---
REPORT REPORT CALLED TO LETA VARGAS AT [facility]. PT ARRANGED TO BE TRANSFERED AROUND 1600
--- NOTE | 2022-05-05 16:28 | NUR ---
PT DISCHARGED THE [facility]. THE PT IS A/OX3, APPEARED TO BE BREATHING EASILY ON RA. VSS. REPORT CALLED TO ALICIA GILLETTE. BELONGINGS RELEASED TO THE PT
== END 2022-05-05 16:06 | DRG 690 ==
LOC: ER 23:41 → MEDS 04-29 02:50
PROVIDERS: Family Medicine; Internal Medicine; Student in an Organized Health Care Education/Training Program; ADMIT Internal Medicine
DX: N39.0 Urinary tract infection, site not specified (principal); N17.9 Acute kidney failure, unspecified; Z20.822 Contact with and (suspected) exposure to COVID-19; B95.5 Unspecified streptococcus as the cause of diseases classified elsewhere; E87.6 Hypokalemia; R62.7 Adult failure to thrive; N28.9 Disorder of kidney and ureter, unspecified; Z68.21 Body mass index [BMI] 21.0-21.9, adult; E86.0 Dehydration; E83.42 Hypomagnesemia; E83.39 Other disorders of phosphorus metabolism; G89.29 Other chronic pain; I10 Essential (primary) hypertension; D63.8 Anemia in other chronic diseases classified elsewhere; F03.90 Unspecified dementia, unspecified severity, without behavioral disturbance, psychotic disturbance, mood disturbance, and anxiety; F41.9 Anxiety disorder, unspecified; F32.A Depression, unspecified; E78.00 Pure hypercholesterolemia, unspecified; E78.5 Hyperlipidemia, unspecified; Z98.49 Cataract extraction status, unspecified eye; Z98.51 Tubal ligation status; Z85.118 Personal history of other malignant neoplasm of bronchus and lung; Z90.49 Acquired absence of other specified parts of digestive tract; Z90.2 Acquired absence of lung [part of]; Z98.890 Other specified postprocedural states; Z90.12 Acquired absence of left breast and nipple; Z79.899 Other long term (current) drug therapy; Z88.1 Allergy status to other antibiotic agents; Z87.891 Personal history of nicotine dependence
CPT/HCPCS: 0241U; 36415; 72100; 72170; 80053; 80069; 81001; 83735; 84100; 85025; 87077; 87086; 93005; 93010; 96365; 96375; 97110; 97116; 97162; 97166; 97530; 97535; 99285-25; A9270; J0696; J1650; J3475; J3480; J7030; J7040; J7060

== ENCOUNTER → 2022-07-01 | Outpatient (CLI) | payer MEDICARE ==
[~2022-07-01] MED LIST changes: +DULO30 PO; +OXYC5 PO
== END ==
LOC: LAB SHORT 07:05 → LAB 07:05
DX: R30.0 Dysuria (principal)
CPT/HCPCS: 87077; 87086; 87186

== ENCOUNTER → 2022-11-12 | Outpatient (CLI) | payer MEDICARE | END | disposition home or self-care (01) | LOC: LAB SHORT 09:00 | DX: R30.0 Dysuria (principal) | CPT/HCPCS: 87077; 87086; 87186 ==

== ENCOUNTER 2022-12-02 15:19 | Inpatient (IN) | payer MEDICARE ==
[~2022-12-02] VITALS: Ht 149.9 cm; Wt 46.9 kg
[2022-12-02 17:19] LABS: BASOPHILS ABSOLUTE AUTO 0.03 K/mm3 (0.00-0.23); BASOPHILS PERCENT AUTO 0 % (0-2); EOSINOPHILS PERCENT AUTO 0 % (0-6); Hematocrit 33.5 % (33.0-51.0); Hemoglobin 11.3 g/dL (11.5-16.0); IMMATURE GRAN ABSOLUTE AUTO 0.07 K/mm3 (0.00-0.10); IMMATURE GRAN PERCENT AUTO 1 % (0-1); LYMPHOCYTES ABSOLUTE AUTO 1.41 K/mm3 (0.84-5.20); LYMPHOCYTES PERCENT AUTO 9 % (21-46); MONOCYTES ABSOLUTE AUTO 1.28 K/mm3 (0.16-1.47); MONOCYTES PERCENT AUTO 9 % (4-13); Mean Corpuscular HGB 31.7 pg (26.0-34.0); Mean Corpuscular HGB Conc 33.7 g/dL (31.5-36.5); Mean Corpuscular Volume 94 fL (80-100); Mean Platelet Volume 9.5 fL (9.1-12.4); NEUTROPHILS ABSOLUTE AUTO 12.15 K/mm3 (1.96-9.15); NEUTROPHILS PERCENT AUTO 81 % (41-73); Platelet Count 272 K/mm3 (150-400); RDW Coefficient Variation 12.9 % (11.7-14.2); RDW Standard Deviation 44.9 fL (35.1-46.3); Red Blood Cell Count 3.56 M/mm3 (3.80-5.20); White Blood Cell Count 14.94 K/mm3 (4.00-11.30)
[2022-12-02 17:46] LABS: CPK Creatine Kinase 441 U/L (26-193); Ethanol (Alcohol), Blood, Med <3 mg/dL; Magnesium, Blood 1.7 mg/dL (1.6-2.4)
[2022-12-02 17:50] LABS: Alanine Aminotransfer (ALT/SGP 15 U/L (12-78); Albumin, Blood 3.3 g/dL (3.4-5.0); Albumin/Globulin Ratio 0.9 (0.8-1.8); Alk Phos 71 U/L (50-136); Anion Gap 11 mmol/L (6-16); Aspartate Aminotrans (AST/SGOT 26 U/L (12-37); Bilirubin, Total 0.6 mg/dL (0.1-1.0); Blood Urea Nitrogen 19 mg/dL (8-24); Bun/Creatinine Ratio 21.7 (12.0-20.0); CO2, Blood 22 mmol/L (21-32); Calcium, Blood 10.8 mg/dL (8.5-10.1); Chloride, Blood 108 mmol/L (98-108); Creatinine, Blood 0.87 mg/dL (0.40-1.00); Globulin, Blood 3.5 g/dL (2.2-4.0); Glomerular Filtration Rate 69 (60-); Glucose, Blood 97 mg/dL (70-99); Potassium, Blood 3.1 mmol/L (3.5-5.5); Sodium, Blood 141 mmol/L (136-145); Total Protein, Blood 6.8 g/dL (6.4-8.2); Triiodothyronine, Free 1.49 pg/mL (2.18-3.98)
[2022-12-02 17:58] LABS: Source, Urine Foley catheter
[2022-12-02 18:04] LABS: Creatine Kinase MB 6.7 ng/mL (0.0-3.6); Creatine Kinase MB Index 1.5 (0.0-4.0)
[2022-12-02 18:04] LABS: Bilirubin, Urine Neg (Neg); Blood, Urine 3+ (Neg); Color, Urine Yellow (P-Yellow); Glucose Qualitative, Urine Neg (Neg); Ketones, Urine 2+ (Neg); Leukocyte Esterase, Urine Neg (Neg); Nitrite, Urine Neg (Neg); Protein, Urine 2+ (Neg); Specific Gravity, Urine 1.015 (1.003-1.022); Urobilinogen, Urine NORM (Normal)
[2022-12-02 18:21] LABS: Appearance, Urine Hazy (Clear)
[2022-12-02 18:22] LABS: Mucus Light (0-Heavy); White Blood Cells, Urine 0-2 /hpf (0-5)
[2022-12-02 18:23] LABS: Amorphous Light (0-Heavy); Bacteria Mod /hpf; Squamous Epithelial Cells Rare /hpf (Few); Transitional Epithelial Cells Rare /hpf (0-Rare)
[2022-12-02 18:38] LABS: Influenza A, PCR NEGATIVE (NEGATIVE); Influenza B, PCR NEGATIVE (NEGATIVE); Resp Syncytial Virus, PCR NEGATIVE (NEGATIVE); SARS-Cov-2 (COVID-19) PCR, MMC NEGATIVE (NEGATIVE)
[2022-12-02 18:41] LABS: U Amphetamine Screen Not Detected; U Barbituate Screen Not Detected; U Benzodiazapine Screen Not Detected; U Buprenorphine Screen Not Detected; U Cannabinoids Screen Not Detected; U Cocaine Screen Not Detected; U Methadone Screen Not Detected; U Methamphetamine Screen Not Detected; U Opiates Screen Not Detected; U Oxycodone Screen Not Detected; U Phencyclidine Screen Not Detected; U Propoxyphene Screen Not Detected
[2022-12-02 19:26] LABS: International Normalized Ratio 1.1; Prothrombin Time Results 11.5 Sec (9.7-11.5)
--- NOTE | 2022-12-03 03:12 | NUR ---
TRANSFER NOTE/ASSUMPTION OF CARE THIS RN RECEIVED REPORT VIA TELEPHONE FROM HUY VARGAS IN THE ED. PATIENT TRANSFERRED TO PCU AT 0205. PATIENT UNRESPONSIVE TO VERBAL/PAINFUL STIMULI. SPONTANEOUS FLEXION OF RIGHT LEG NOTED. OTHER EXTREMETIES FLACCID. PATIENT WITH SMACKING MOTION OF MOUTH/LIPS. PATIENT ON RA WITH SPO2 >92%. SBP 160'S. SB/SR WITH HR 50-80'S; HR IN THE 50'S WHILE NOT STIMULATED BY STAFF/CARE. RR 14-16. SHALLOW BREATHING NOTED. CORE TEMP 100.0 AT THIS TIME. PULSES FELT THROUGHOUT, EXTREMETIES COLD/PALE. MOONEY CATHETER PATENT AND DRAINING LIGHT YELLOW URINE TO GRAVITY. SEIZURE PADS IN PLACE. SUCTION SET UP AT BEDSIDE. BED IN LOWEST POSITION AND CALL LIGHT WITHIN REACH. THIS RN WILL REVIEW CHART AND CONTINUE TO PROVIDE INTERVENTIONS NEEDED/ORDERED DURING THIS SHIFT.
--- NOTE | 2022-12-03 03:26 | NUR ---
CALL TO PROVIDER THIS RN SPOKE TO MD SHEETS REGARDING PO MEDICATION ORDERS. PATIENT CONTINUES TO BE UNRESPONSIVE AND NPO; MD SHEETS VERBALIZED THAT HE WOULD CHANGE MEDS TO IV. MD SHEETS STATED TO THIS RN THAT WE WOULD NOT TREND TROPONINS AT THIS TIME SINCE PREVIOUS ELEVATED TROPONIN. NO FURTHER ORDERS/CHANGES AT THIS TIME.
[2022-12-03 04:09] LABS: BASOPHILS ABSOLUTE AUTO 0.03 K/mm3 (0.00-0.23); BASOPHILS PERCENT AUTO 0 % (0-2); EOSINOPHILS PERCENT AUTO 0 % (0-6); Hematocrit 32.2 % (33.0-51.0); Hemoglobin 10.9 g/dL (11.5-16.0); IMMATURE GRAN ABSOLUTE AUTO 0.03 K/mm3 (0.00-0.10); IMMATURE GRAN PERCENT AUTO 0 % (0-1); LYMPHOCYTES ABSOLUTE AUTO 1.69 K/mm3 (0.84-5.20); LYMPHOCYTES PERCENT AUTO 13 % (21-46); MONOCYTES ABSOLUTE AUTO 1.21 K/mm3 (0.16-1.47); MONOCYTES PERCENT AUTO 10 % (4-13); Mean Corpuscular HGB 32.3 pg (26.0-34.0); Mean Corpuscular HGB Conc 33.9 g/dL (31.5-36.5); Mean Corpuscular Volume 96 fL (80-100); Mean Platelet Volume 8.9 fL (9.1-12.4); NEUTROPHILS ABSOLUTE AUTO 9.72 K/mm3 (1.96-9.15); NEUTROPHILS PERCENT AUTO 77 % (41-73); Platelet Count 240 K/mm3 (150-400); RDW Coefficient Variation 13.2 % (11.7-14.2); RDW Standard Deviation 45.9 fL (35.1-46.3); Red Blood Cell Count 3.37 M/mm3 (3.80-5.20); White Blood Cell Count 12.68 K/mm3 (4.00-11.30)
[2022-12-03 04:41] LABS: Bilirubin, Total 0.5 mg/dL (0.1-1.0); Bun/Creatinine Ratio 18.7 (12.0-20.0); Calcium, Blood 9.9 mg/dL (8.5-10.1); Creatinine, Blood 0.97 mg/dL (0.40-1.00); Globulin, Blood 3.1 g/dL (2.2-4.0); Total Protein, Blood 6.1 g/dL (6.4-8.2)
--- NOTE | 2022-12-03 05:12 | NUR ---
SHIFT SUMMARY PATIENT RESPONDED TO ORAL CARE AND MOANED BRIEFLY, ALONG WITH PULLING AWAY FROM SWAB AND CHEWING ON SWAB. OTHERWISE PATIENT HAS NOT RESPONDED TO ANY OTHER TYPE OF STIMULI OR CARE SINCE PREVIOUS NOTE/ASSESSMENT. PUPILS RESPONDING SLUGGISHLY TO LIGHT, NOT TRACKING THIS RN. GAG REFLEX AND COUGH INTACT. SPONTANEOUS FLEXION OF RIGHT LEG, WITH ALL OTHER EXTREMETIES FLACCID. VITALS STABLE. REPOSITIONING Q2HRS AND ORAL CARE Q4HRS. MOONEY CATHETER PATENT AND DRAINING TO GRAVITY. BED IN LOWEST POSITION AND CALL LIGHT WITHIN REACH. THIS RN WILL CONTINUE TO MONITOR UNTIL SHIFT CHANGE AT 0700.
--- NOTE | 2022-12-03 09:33 | NUR ---
PHONE CALL TO DR GALICIA REGARDING PT'S POTASSIUM LEVEL OF 3.0 AND THE PO LIPITOR THAT WAS ORDERED. ORDERS FROM DR GALICIA FOR 80MEQ IV OF POTASSIUM AND HOLD PO LIPITOR FOR NOW.
--- NOTE | 2022-12-03 10:06 | NUR ---
Spoke with Primary RN Zheng prior to visit and discussed case. Pt resting in bed with her eyes closed and is non responsive. Pt appears comfortable with no S/S of distress at this time. Pt's sister Heather and family friend Chanelle (Primary decision maker on AD) at bedside. Reviewed plan of care and offer supportive visit. Listened as family reports being realistic and awaiting further testing that is scheduled before making a decision. Continued supportive visit. Palliative Care will remain available.
--- NOTE | 2022-12-03 10:40 | NUR ---
UPDATE POTASSIUM STARTED AT DECREASED RATE OF 40ML/HR. PT STARTED TO SHOW SIGNS OF DISCOMFORT WITH A FURROWED BROW, MOVEMENT OF BLE, TEARFUL, AND INCREASED HR. POTASSIUM DECREASED TO 20ML/HR AND PT STILL NOT TOLERATING WELL. FAMILY AT BEDSIDE, INCLUDING PT STELLA BLAKE, AND HAVE DECIDED TO HOLD ON POTASSIUM AT THIS TIME. POTASSIUM STOPPED PER THEIR REQUEST. WILL DISCUSS WITH DR GALICIA WHEN HE ROUNDS.
--- NOTE | 2022-12-03 13:00 | NUR ---
UPDATE PT POWER OF BOREMATIC OPERATOR STILL WANTING TO HOLD POTASSIUM AT THIS TIME BUT WILLING TO TRY POTASSIUM AT RATE OF 10ML/HR AND DILUTED IN MORE NS, LATER THIS EVENING AFTER ALL PROCEDURES ARE COMPLETE.
--- NOTE | 2022-12-03 17:31 | NUR ---
SHIFT SUMMARY PT REMAINS ONLY RESPONSIVE TO SOME PAINFUL STIMULI. PT WAS CHEWING ON ORAL SWAB DURING ORAL CARE AND GRIMACED FREQUENTLY AFTER APPLYING MINT FLAVORED MOUTH MOISTURIZER. PT HAD MULTIPLE EPISODES OF RESTLESSNESS, MOVING BOTH LOWER EXTREMITIES, AND MOUTH FREQUENTLY. RUE REMAINS FLACCID, ALTHOUGH FAMILY NOTED PT MOVING R ARM ACROSS BODY AT ONE POINT. LUE IS TENSE AND WRIST IS RIGID. PT PROVIDED WITH WASHCLOTH TO HOLD AND FREQUENTLY LET GO AND WOULD TRY TO SOLE LAYER IT AGAIN. PT HAD FREQUENT EPISODES OF WHAT APPEARED TO BE PAIN. PT MEDICATED PER EMAR WITH LITTLE RELIEF. PHONE ORDER WAS RECEIVED FOR Q6H PRN TORADOL FROM DR GALICIA AND PT SEEMS TO BE MORE RELAXED AND RESTING MORE COMFORTABLY AT THIS TIME. PT WAS IN SINUS RHYTHM, HR 45-80'S. HR INCREASED TO THE 80'S WITH RESTLESSNESS AND PERCEIVED PAIN. SPO2 >92% ON RA. FAMILY ALSO REQUESTED IV PROTONIX FOR PT DUE TO HX OF GI BLEED AND NORMALLY TAKES OMEPRAZOLE DAILY AT HOME. DR GALICIA GAVE TELEPHONE ORDER FOR 40MG PROTONIX ONCE DAILY. EEG AND ECHO WERE PERFORMED TODAY, PT WAS RESTLESS BUT TOLERATED BOTH WELL. PLANS FOR AN MRI IN THE MORNING. ORAL CARE PERFORMED Q4H AND PT REPOSITIONED Q2H. WILL CONTINUE TO MONITOR PT AND REPORT TO MANUFACTURER REPRESENTATIVE RN.
--- NOTE | 2022-12-03 20:19 | NUR ---
ASSUMPTION OF CARE THIS RN ASSUMED CARE OF PATIENT AT 1900. REPORT TAKEN FROM NIXON VARGAS. PATIENT WITH NOTED FINE JERKING MOTIONS OF LEFT ARM, LEG AND SHOULDER ALONG WITH CONSTANT SMACKING MOTION OF MOUTH. PUPILS REACTIVE TO LIGHT WITH PUPILS MOVING LEFT/RIGHT SLOWLY; NOT TRACKING THIS RN. NOT FOLLOWING COMMANDS. THIS RN NOTED GROSS MOVEMENTS OF BLE AND RIGHT ARM; TWITCHING NOTED IN LEFT ARM WITHOUT OBVIOUS GROSS MOVEMENT. THIS RN GAVE 1MG ATIVAN WITH GOOD RESULTS. PATIENT CONTINUES TO MOVE LEGS AND ARMS BUT IS NO LONGER HAVING FINE JERKING/TWITCHING MOVEMENTS. PATIENT REACTS TO PAINFUL STIMULI WITH FURROWED BROW AND MOANING MOTIONS WELL PULLING AWAY FROM ORAL CARE. SEIZURE PRECAUTIONS REMAIN IN PLACE. PATIENT'S FAMILY REFUSED SECOND BAG OF POTASSIUM INFUSION FOR LOW POTASSIUM AND STATED THAT THEY WOULD LIKE IT GIVEN TOMORROW MORNING; THIS RN CHARTED THIS IN EMAR. BED IN LOWEST POSITION AND CALL LIGHT WITHIN REACH. THIS RN WILL CONTINUE TO PROVIDE INTERVENTIONS NEEDED/ORDERED DURING THIS SHIFT.
[2022-12-04 04:14] LABS: BASOPHILS ABSOLUTE AUTO 0.05 K/mm3 (0.00-0.23); BASOPHILS PERCENT AUTO 1 % (0-2); EOSINOPHILS ABSOLUTE AUTO 0.06 K/mm3 (0.00-0.68); EOSINOPHILS PERCENT AUTO 1 % (0-6); Hemoglobin 9.8 g/dL (11.5-16.0); IMMATURE GRAN ABSOLUTE AUTO 0.03 K/mm3 (0.00-0.10); IMMATURE GRAN PERCENT AUTO 0 % (0-1); LYMPHOCYTES PERCENT AUTO 19 % (21-46); MONOCYTES ABSOLUTE AUTO 0.88 K/mm3 (0.16-1.47); MONOCYTES PERCENT AUTO 11 % (4-13); Mean Corpuscular HGB 31.6 pg (26.0-34.0); Mean Corpuscular HGB Conc 32.7 g/dL (31.5-36.5); Mean Corpuscular Volume 97 fL (80-100); NEUTROPHILS ABSOLUTE AUTO 5.72 K/mm3 (1.96-9.15); NEUTROPHILS PERCENT AUTO 69 % (41-73); Platelet Count 238 K/mm3 (150-400); RDW Coefficient Variation 13.7 % (11.7-14.2); RDW Standard Deviation 47.8 fL (35.1-46.3); White Blood Cell Count 8.34 K/mm3 (4.00-11.30)
[2022-12-04 04:44] LABS: Albumin, Blood 2.8 g/dL (3.4-5.0); Albumin/Globulin Ratio 0.8 (0.8-1.8); Bilirubin, Total 0.6 mg/dL (0.1-1.0); Bun/Creatinine Ratio 23.2 (12.0-20.0); Calcium, Blood 9.9 mg/dL (8.5-10.1); Creatinine, Blood 0.95 mg/dL (0.40-1.00); Globulin, Blood 3.3 g/dL (2.2-4.0); Potassium, Blood 2.6 mmol/L (3.5-5.5); Total Protein, Blood 6.1 g/dL (6.4-8.2)
--- NOTE | 2022-12-04 04:54 | NUR ---
SHIFT SUMMARY NO ACUTE CHANGES DURING THIS SHIFT. VITALS STABLE. PATIENT CONTINUES TO HAVE PUPILLARY RESPONSE TO LIGHT THAT IS SLUGGISH; NOT TRACKING THIS RN. INVOLUNTARY MOVEMENT OF BLE, THE RIGHT LEG MORE THAN THE LEFT. THIS RN WITNESSED THE PATIENT BRING HER RIGHT HAND TO HER MOUTH 1X DURING THIS SHIFT, ARM HAS OTHERWISE BEEN FLACCID WITH EPISODES OF SPACITITY. LEFT ARM CONTINUES TO HAVE FINE MUSCLE TWITCHING/MOVEMENTS, NO NOTED INVOLUNTARY GROSS MOVEMENT, LEFT ARM MOSTLY FLACCID DURING THIS SHIFT WITH EPISODES OF SPACITITY WHERE PATIENT CLENCHES FIST; PATIENT WITH WASHCLOTH IN HAND TO PREVENT INJURY TO SELF. RESPONDING TO PAINFUL STIMULI ONLY, OCCASIONAL SOFT MOANING SOUNDS. ORAL CARE DONE Q4HRS AND GIVEN WET SWABS TO MOISTEN MOUTH PRN. REPOSITIONING Q2HRS. CATHETER APPEARED TO HAVE LEAKED DURING THIS SHIFT POSSIBLY D/T PATIENT'S BLE MOVEMENTS THAT COULD HAVE KINKED LINE, CURRENTLY MOONEY CATHETER IS DRAINING VIA GRAVITY. BED IN LOWEST POSITION AND CALL LIGHT WITHIN REACH. THIS RN WILL CONTINUE TO MONTITOR UNTIL SHIFT CHANGE AT 0700.
--- NOTE | 2022-12-04 05:00 | NUR ---
PATIENT UPDATE STATED IN THIS RN'S PREVIOUS NOTE AND DAY SHIFT RN NIXON'S NOTE, FAMILY/POA REFUSED POTASSIUM REPLACEMENT AND ASKED TO ADRESS INFUSION DURING THE DAY SHIFT WHEN THEY COULD BE PRESENT. POTASSIUM AT 2.6 WITH THIS AM'S LABS. THIS RN MADE DRYING ROOM OPERATORALICIA MAGALLANES AWARE. PREVIOUS DAYSHIFT ALICIA ALICEA VERBALIZED THAT SHE MADE MD AWARE OF THE FAMILY'S DECISION YESTERDAY 12/03. NO FURTHER INTERVENTIONS AT THIS TIME.
--- NOTE | 2022-12-04 09:29 | NUR ---
PT NEURO STATUS REMAINS SIMILAR TO YESTERDAY. PT NOW HAVING SPONTANEOUS MOVEMENT IN THE RUE. PT STILL ABLE TO MOVE BLE. PT NOT COMMUNICATING AND RESPONSIVE ONLY TO PAINFUL STIMULI. PERRLA PRESENT WITH SLUGGISH RESPONSE. PT FAMILY AT BEDSIDE AND GAVE THE OK TO START INFUSING PT POTASSIUM AT A RATE OF 10ML/HR, RUNNING CONCURRENTLY WITH NS TO FURTHER DILUTE. PT TOLERATING WELL AT THIS TIME. PT DOES NOT APPEAR RESTLESS AND SEEMS TO BE RESTING COMFORTABLY. PT SR/SB, HR MAINLY IN THE 60'S AT THIS TIME. PT HTN WITH SBP IN 160'S. SPO2 >92% ON RA. MOONEY CATHETER DRAINING TO GRAVITY, URINE IS LIGHT YELLOW. PLAN FOR TO RECEIVE MRI OF THE HEAD THIS AM.
--- NOTE | 2022-12-04 11:00 | NUR ---
Supportive visit made to pt and family at bedside. Niece who is pt's medical POA had just gotten off the phone and had a difficult conversation with pt's oldest brother re: pt's documented wishes in her advanced directive and niece's intent to follow/honor pt's wishes. They are awaitng an MRI today and hopeful that after results are received pt can receive more frequent and adequate s/s management medications. Family report that they note increased heart rate and restlessness as indicators of increased discomfort frequently. Pt was medicated for comfort approx 2-3 hours ago and currently she appears comfortable with only slight restlessness noted during my visit. I case conferenced with pt's RN before and after my visit. FAmily is giving pt a little more time but indicate they are moving towards comfort care soon if no improvement noted soon. Niece and pt's sister supportive of each other and in agreement with the family and Drs plan of care at this time.
--- NOTE | 2022-12-05 14:28 | NUR ---
CARE NOTE PT APPEARS TO BE SLEEPING COMFORTABLY. FAMILY IS AT BEDSIDE AND HAS BEEN COMMUNICATIVE ABOUT IF PT APPEARS COMFORTABLE OR NOT. REPOSITIONING APPEARS TO AGITATE PT SO PRN REPOSITIONING PROVIDED TO MAINTAIN COMFORT LEVEL. ORAL CARE PROVIDED PRN WELL. FAMILY AT BEDSIDE HAS BEEN CALLING APPROPRIATLEY W/ PT CARE NEEDS.
--- NOTE | 2022-12-05 16:00 | NUR ---
CARE NOTE PT APPEARED WRESTLESS SHE WAS MOVING HER LEGS/TUCKING THEM UP AND MOANING OUT OCCASSIONALLY, PLEASE SEE EMAR FOR PAIN MANAGEMENT, WARM BLANKET ALSO PROVIDED FOR COMFORT. SISTER ANNA IS STILL AT BEDSIDE.
--- NOTE | 2022-12-05 18:01 | NUR ---
SHIFT SUMMARY PT APPEARS COMFORTABLE AT THIS TIME, SHE IS NOT RESTLESS NOR IS SHE MOANING. SISTER ANNA IS NO LONGER AT BEDSIDE. PT HAS REMAINED ALERT TO PAINFUL STIMULI ONLY. TELE MONITORING IS IN PLACE PER FAMILY REQUEST, HR 60-70 PER TELE REPORT. THIS RN AND LELAND MAHER CNA GAVE PT A COMPLETE BEDBATH, LINNEN CHANGE, COMBED HER HAIR, PROVIDED EYE CARE AND NICKY CARE/MOONEY CARE, FLOATED HER HIPS ON PILLOWS, AND PROVIDED A WARM BLANKET AT APPROX. 1700. BED IS IN LOW AND BED ALARM IS ON, WILL CONTINUE TO MONITOR UNTIL REPORT GIVEN.
--- NOTE | 2022-12-06 04:00 | NUR ---
SHIFT SUMMARY: PT HAS REMAINED RESPONSIVE ONLY TO PAIN. AGONAL RESPIRATIONS WITH 30 PAUSES BETWEEN RESPIRATIONS AT TIMES. MEDICATED ONCE FOR DISCOMFORT DUE TO INCREASE IN RESPIRATION RATE TO 20 BPM. NO OTHER SIGNS OF DISTRESS PRESENT. MOONEY CATHETER DRAINING STRONG SMELLING URINE WITH LARGE AMOUNT OF SEDAMENT. REPOSITIONED Q2H.
--- NOTE | 2022-12-06 07:30 | NUR ---
ASSUMED CARE: PT RESTING IN BED, FAMILY AT BEDSIDE REPORTS RESPIRATORY PAUSES AT TIMES. ASKING FOR ATROPINE FOR SECRETIONS. PT'S SKIN WARM TO THE TOUCH. FRET SAW OPERATOR TO BEDSIDE ASKING ABOUT REPOSITION BUT FAMILY DECLINED AT THIS TIME DUE TO PT SEEMING COMFORTABLE. NO ACUTE NEEDS AT THIS TIME.
--- NOTE | 2022-12-06 12:14 | NUR ---
CASE CONF WITH RN, PT ACTIVELY DYING, RESTING COMF AND FAMILY IS AT THE BEDSIDE. NO CONCERNS OR SYMTPOM MANAGMENT NEEDED AT THIS TIME. FAMILY IS SITTING AT THE BEDSIDE, THEY ARE VISITING AND THE MOOD IS LIGHT IN THE ROOM. THEY APPEAR TO HAVE ACCEPTED THAT THE PT IS AT END OF LIFE AND DOING OK. WE DISCUSSED THAT SINCE THE PT IS SO CLOSE TO END OF LIFE, THAT THERE IS NO PLAN TO SEND HER HOME ON HOSPICE AT THIS POINT. WE VISITED FOR A FEW MINUTES, NO FURTHER QUESTIONS OR CONCERNS AT THIS TIME AND I WILL CONT TO CHECK IN ON THEM T/O THE DAY. PT FACE IS RELAXED, BREATHING IS IRREGULAR WITH LONG PAUSES. HER FACE IS RELAXED AND SHE APPEARS TO BE COMFORTABLE. PALLIATIVE CARE WILL CONTINUE TO FOLLOW AND OFFER SUPPORT.
--- NOTE | 2022-12-06 17:53 | NUR ---
SHIFT SUMMARY: PT'S FAMILY HAS BEEN AT BEDSIDE T/O SHIFT. PT MEDICATED FOR ANXIETY ONCE, ATROPINE VARIOUS TIMES T/O DAY AND FOR PAIN A FEW TIMES THIS SHIFT. REPOSITIONING PER FAMILY REQUEST. MEDICATING FAMILY REQUESTS. NO ACUTE NEEDS OR CONCERNS AT THIS TIME.
--- NOTE | 2022-12-06 18:28 | NUR ---
MULTIPLE FAMILY MEMBERS IN ROOM, PT UNCHANGED FROM EARLIER TODAY AND REMAINS COMFORTABLE. FAMAILY HAVE NO QUESTIONS AND ARE DOING OK.
--- NOTE | 2022-12-07 05:53 | NUR ---
Patient sister at bedside, pain and anxiety meds given prn as per family request. Patient positioned changed at family request. Estrada catheter in place. Report given to ALCIIA Damon. Patient will be transfered to medical floor. No acute concerns at this time.
--- NOTE | 2022-12-07 06:01 | NUR ---
PT APPEARS COMFORTABLE UPON TRANSFER FROM ICU AT 0545. ROXANOL 20 MG GIVEN IMMEDIATELY PRIOR TO TRANSFER. SISTER AT BEDSIDE, HELPFUL AND PLEASANT. ORAL CARE PROVIDED, SUCTION SET UP. CALL LIGHT IN PLACE, SISTER ORIENTED TO ROOM AND COMFORT CARE.
--- NOTE | 2022-12-07 09:38 | NUR ---
Comfort Care Visit Pt resting in bed with eyes opened and is non responsive. Pt appears comfortable with no S/S of distress at this time. Family at bedside. Offered suportive visit with family and answered questions. Ordered comfort care cart. Pt appears to be actively dying and may benefit from remaining in the hospital in order to not interupt peaceful passing. Spoke with Ncr Operator Joey and relayed request from family for Ncr Operator visit. Palliative Care will remain available.
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
--- NOTE | 2022-12-07 18:46 | NUR ---
SHIFT SUMMARY PT MEDICATED FOR COMFORT SEVERAL TIMES TODAY. FAMILY AT BEDSIDE THROUGHOUT DAY. RESP HAS BEEN BETWEEN 14-16 THROUGHOUT THE DAY UNTIL APPROX 1800 AND RESP CHANGED TO MORE AGONAL BREATHING. RESP 6-8 AND IRRREGULAR. REPOSITIONED FOR COMFORT THROUGH THE DAY.
--- NOTE | 2022-12-08 05:12 | NUR ---
ROXANOL GIVEN REQUESTED BY FAMILY AT BEDSIDE. RESPIRATIONS WEAK AND VARY BETWEEN 10-16 AN HOUR. OPENS EYES TO VOICE, DOES NOT ATTEMPT TO COMMUNICATE. ORAL CARE, EYE DROPS, ATROPINE OFFERED/GIVEN PRN.
--- NOTE | 2022-12-08 08:18 | NUR ---
Comfort Care Visit Pt resting in bed with her eyes opened. Pt non responsive and appears comfortable with no S/S of distress at this time. Family at bedside and supportive visit offered. Palliative Care will remain available.
--- NOTE | 2022-12-08 08:43 | NUR ---
Spiritual care visit conducted. Patient continues to linger, family present through the night. They bring a climate of love and ricco as they linger with her. I provided a calm presence and encouragement. Family voiced their apprecaition.
--- NOTE | 2022-12-08 15:12 | NUR ---
F/U Comfort Care Visit Pt resting in bed and is non responsive. Family at bedside. Offered therapeutic listening and answered questions. Educated on actively dying stage. Family agrees Pt should remain in the hospital. Pt appears to be actively dying and would benefit from remaining in the hospital in order to not interupt peaceful passing. Palliative Care will remain available
--- NOTE | 2022-12-08 15:26 | NUR ---
Late Entry From Previous Note Family elects [facility] when Pt passes away. Relayed choice to traffic coordinatorALICIA Roca.
--- NOTE | 2022-12-08 17:14 | NUR ---
SHIFT SUMMARY PT HAS BEEN SURROUNDED BY FAMILY THROUGHOUT DAY. REPOSITIONED FOR COMFORT AND MEDICATED FOR COMFORT WELL. ONIY REQUESTED TO GIVE A BED BATH THIS AFTERNOON AND LINENS GIVEN. MOTTLING TO THIGHS APPROX NOONTIME. WILL CONTINUE TO MONITER AND TREAT NEEDED.
--- NOTE | 2022-12-09 04:54 | NUR ---
ROXANOL 20 MG GIVEN AT REQUEST OF SISTER AT BEDSIDE FOR PATIENT COMFORT. PT WAS BATHED LAST NIGHT. TURN ASSISTANCE PROVIDED. WILL CONTINUE TO MONITOR AND KEEP PATIENT COMFORTABLE. PT EYES OPEN SPONTANEOUSLY, MILDLY LABORED AND SHALLOW BREATHING.
--- NOTE | 2022-12-09 07:41 | NUR ---
Spiritual care visit conducted. Patient continues to show no signs of discomfort or pain. Pt's sister, Heather is bedisde. I offer encouragement and prayer. Heather, voices her appreciation for the spiritual care visit. I will continue to remain available to patient and family.
--- NOTE | 2022-12-09 08:21 | NUR ---
Comfort Care Visit Pt resting in bed and is non responsive. Irregular breathing pattern and mottling in lower extremities noted. Sister at bedside. Offered supportive visit and encouraged family to reasure Pt. Pt appears comfortable with no S/S of distress at this time. Palliative Care will remain available
--- NOTE | 2022-12-09 12:32 | NUR ---
Spiritual care visit conducted. I am contacted by pt's RN Susu yao after pt expires and perform a final spiritual care visit with the family. Family talk about her peaceful passing, the beauty of having exactly the right people in the rm as she and the ricco and sadness that is felt at the same time. I normalize their experience, celebrate the love that the family has surrounded the patient with and provide grief support and prayer. Family responded well and showed sings of being comforted.
--- NOTE | 2022-12-09 13:08 | NUR ---
FOUND WITH NO PULSE OR RESPIRATIONS AT 1220. FAMILY AT BEDSIDE. MEDICAL SOCIOLOGIST NOTIFIED.
--- NOTE | 2022-12-09 13:30 | NUR ---
SCOOBY GALLO HERE TO PICK BODY UP AT 1320. TO CURB VIA GURNEY. FAMILY TOOK BELONGINGS HOME.
== END 2022-12-09 12:20 | DRG 64 ==
LOC: ER 15:19 → ERHOLD 12-03 00:18 → PCU 12-03 00:18 → MEDS 12-03 00:18 → PCU 12-03 02:00 → MEDS 12-07 05:50
PROVIDERS: Family Medicine; Internal Medicine; Student in an Organized Health Care Education/Training Program; ADMIT Internal Medicine
DX: I63.9 Cerebral infarction, unspecified (principal); I21.A1 Myocardial infarction type 2; G93.49 Other encephalopathy; R64 Cachexia; N39.0 Urinary tract infection, site not specified; F01.50 Vascular dementia, unspecified severity, without behavioral disturbance, psychotic disturbance, mood disturbance, and anxiety; Z28.21 Immunization not carried out because of patient refusal; Z20.822 Contact with and (suspected) exposure to COVID-19; Z66 Do not resuscitate; Z51.5 Encounter for palliative care; R29.716 NIHSS score 16; E87.6 Hypokalemia; M48.00 Spinal stenosis, site unspecified; R56.9 Unspecified convulsions; K52.831 Collagenous colitis; G89.29 Other chronic pain; I10 Essential (primary) hypertension; E78.00 Pure hypercholesterolemia, unspecified; Z87.891 Personal history of nicotine dependence; Z98.49 Cataract extraction status, unspecified eye; Z90.12 Acquired absence of left breast and nipple; Z90.49 Acquired absence of other specified parts of digestive tract; Z98.51 Tubal ligation status; Z98.890 Other specified postprocedural states; Z88.8 Allergy status to other drugs, medicaments and biological substances; Z79.899 Other long term (current) drug therapy
CPT/HCPCS: 0241U; 36415; 51702; 70450; 70496; 70498; 70551; 71045; 80053; 81001; 82550; 82553; 82947; 83605; 83735; 83880; 84439; 84443; 84481; 84484; 85025; 85610; 85730; 87086; 93005; 93010; 93306; 95819; 96365-59; 96366-59; 96367-59; 96368; 96375-59; 99285-25; A9270; C9113; G0480; J1650; J1885; J1953; J2060; J2270; J3480; J7030; J7050; Q9967